=== PATIENT | female | born 2000 | race African-American/Black ===

== ENCOUNTER 2021-12-05 12:53 | Emergency (ER) | payer BC ==
[~2021-12-05] VITALS: Ht 152.4 cm; Wt 49.9 kg
[2021-12-05] MEDS ORDERED: HALOPERIDOL LACTATE 5 MG/1 ML VIAL IV ONE (13:15)
[2021-12-05] MEDS ORDERED: MAG HYDROX/AL HYDROX/SIMETH 30 ML LIQUID UDC PO ONE (13:15)
[2021-12-05] MEDS ORDERED: IV NORMAL SALINE 500 ML BAG IV ONE (13:15)
[2021-12-05] MEDS ORDERED: LIDOCAINE VISCUS 2% 15 ML UDC MM ONE (13:15)
[2021-12-05] MEDS ORDERED: diphenhydrAMINE 50 MG/1 ML VIAL IV ONE (13:15)
[2021-12-05 13:20] LABS: HEMATOCRIT 36.4 % (31.2-41.9); MEAN CORPUSCULAR HEMOGLOBIN 28.3 uug (24.7-32.8); MEAN CORPUSCULAR VOLUME 85.7 fL (75.5-95.3); PLATELET COUNT (AUTO) 216 K/uL (179-408)
[2021-12-05] MEDS ORDERED: ONDA8TAB13 PO (13:24)
[2021-12-05] MEDS ORDERED: diphenhydrAMINE 50 MG/1 ML VIAL ONE (13:25)
[2021-12-05] MEDS ORDERED: HALOPERIDOL LACTATE 5 MG/1 ML VIAL ONE (13:25)
[2021-12-05] MEDS ORDERED: MAG HYDROX/AL HYDROX/SIMETH 30 ML LIQUID UDC ONE (13:26)
[2021-12-05] MEDS ORDERED: LIDOCAINE VISCUS 2% 15 ML UDC ONE (13:26)
--- NOTE | 2021-12-05 13:32 | NUR ---
PT IS IN ROOM #2B. DR NÚÑEZ EVALUATED THE PT.
[2021-12-05 13:35] LABS: CREATININE 0.6 mg/dL (0.6-1.3); POTASSIUM 3.2 mmol/L (3.5-5.1)
[2021-12-05 13:41] LABS: BILIRUBIN,DIRECT 0.1 mg/dL (0.0-0.2); BILIRUBIN,TOTAL 0.4 mg/dL (0.2-1.0); TOTAL PROTEIN, SERUM 8.1 g/dL (6.4-8.2)
--- NOTE | 2021-12-05 15:08 | NUR ---
PT WAS D/C'd TO HOME. D/C INSTRUCTIONS GIVEN TO THE PT BY DR NÚÑEZ.
[2021-12-05 15:12] VITALS: BP 124/68
== END 2021-12-05 16:02 | disposition home or self-care (01) ==
LOC: ER 12:53
DX: R11.2 Nausea with vomiting, unspecified (principal); R10.13 Epigastric pain; F32.A Depression, unspecified; E87.6 Hypokalemia
CPT/HCPCS: 99284; 96374; 96361; 96375; 80076; 80048; 83690; 85025; 84702; 36415; J1200; J1630; J7040; A4663